=== PATIENT | male | born 1990 | race Caucasian/White ===

== ENCOUNTER → 2016-09-04 10:28 | Outpatient (CLI) | payer BC ==
[2013-09-10 18:18] VITALS: BMI 21.1
[~2016-09-04 10:28] MED LIST: BENEFIBER1 PKT PO; CIPRO500 MG PO; DILAUDID2 MG PO; EPITOL PO; FLOMAX0.4 MG PO; HYDROCODONE-APA1 TAB PO; LIBRAX CAPSULE1 CAP PO; NORCO 5/325 TAB1 TA1 PO; PHENERGAN25 M1 PO; PROTONIX40 MG PO; TEGRETOL 200 M200 MG PO; TEGRETOL200 MG PO
== END | disposition home or self-care (01) ==
LOC: D.MRI 10:28
DX: M54.16 Radiculopathy, lumbar region (principal)

== ENCOUNTER → 2017-05-20 08:03 | Outpatient (CLI) | payer MEDICAID ==
[2013-09-10 18:18] VITALS: BMI 21.1
== END | disposition home or self-care (01) ==
LOC: D.MRI 08:03
DX: M54.16 Radiculopathy, lumbar region (principal)